=== PATIENT | male | born 1990 | race Caucasian/White ===

== ENCOUNTER 2019-04-03 12:19 | Emergency (ER) | payer SELFPAY ==
--- NOTE | 2019-04-03 12:41 | EDM.PDOC ---
ED HPI GENERAL MEDICAL PROBLEM - General Chief Complaint: Lower Extremity Injury/Pain Stated Complaint: BI;FEET ISSUES Time Seen by Provider: 04/03/19 12:41 Source of Information: Reports: Patient History Limitations: Reports: No Limitations - History of Present Illness INITIAL COMMENTS - FREE TEXT/NARRATIVE: HISTORY AND PHYSICAL: History of present illness: Patient is a 28-year-old male presents to the ED with complaint of foot pain. He states he has been having pain for the past month that has progressively gotten worse. He states it is worse by the end of the day after being on his feet all day. Pain is in his right heel and he can barely put weight on it. He states he has pain and swelling on the inside of the left foot. He denies injury or trauma, numbness, tingling. Review of systems: As per history of present illness and below otherwise all systems reviewed and negative. Past medical history: As per history of present illness and as reviewed below otherwise noncontributory. Surgical history: As per history of present illness and as reviewed below otherwise noncontributory. Social history: No reported history of drug or alcohol abuse. Family history: As per history of present illness and as reviewed below otherwise noncontributory. Physical exam: General: Patient sitting comfortably in no acute distress and nontoxic appearing HEENT: Atraumatic, normocephalic, pupils reactive, negative for conjunctival pallor or scleral icterus, mucous membranes moist, throat clear, neck supple, nontender, trachea midline. No meningeal signs. Lungs: Clear to auscultation, breath sounds equal bilaterally, chest nontender. Heart: S1S2, regular, negative for clicks, rubs, or overt murmur. Abdomen: Soft, nondistended, nontender. Negative for masses or hepatosplenomegaly. Negative for costovertebral tenderness. No rigidity, rebound , guarding. Pelvis: Stable nontender. Genitourinary: Deferred. Rectal: Deferred. Extremities: Atraumatic, negative for cords or calf pain. Neurovascular unremarkable. Neuro: Awake, alert, oriented. Cranial nerves II through XII unremarkable. Cerebellum unremarkable. Motor and sensory unremarkable throughout. Exam nonfocal. Notes: Diagnostics: foot x-ray left, foot x-ray right. Therapeutics: [] Prescriptions: Diclofenac Impression: Foot pain, bilateral Plan: Ice, elevate, and take diclofenac as instructed Follow up with podiatry, please call the number provided to schedule an appointment Return to ED as needed as discussed Definitive disposition and diagnosis as appropriate pending reevaluation and review of above. Bilateral Feet Pain Score (Numeric/FACES): 3 - Related Data Allergies Allergy/AdvReac Type Severity Reaction Status Date / Time No Known Allergies Allergy Verified 04/03/19 12:25 Home Meds: Home Meds . [No Known Home Meds] 04/03/19 [History] Past Medical History - Infectious Disease History Infectious Disease History: Reports: Chicken Pox - Past Surgical History HEENT Surgical History: Reports: Adenoidectomy, Tonsillectomy Social & Family History - Family History Family Medical History: Noncontributory - Tobacco Use Smoking Status *Q: Former Smoker Used Tobacco, but Quit: Yes Month/Year Tobacco Last Used: 2017 - Caffeine Use Caffeine Use: Reports: Soda, Tea - Recreational Drug Use Recreational Drug Use: Yes Drug Use in Last 12 Months: Yes Recreational Drug Type: Reports: Marijuana/Hashish Other Recreational Drug Type: States did it a few months ago. States not a regular thing. Review of Systems - Review of Systems Review Of Systems: ROS reveals no pertinent complaints other than HPI. ED EXAM, GENERAL - Physical Exam Exam: See Below (see dictation) Course - Vital Signs Last Recorded V/S: Last Vital Signs Temp 97.0 F 04/03/19 12:26 Pulse 63 04/03/19 12:26 Resp 17 04/03/19 12:26 BP 130/71 04/03/19 12:26 Pulse Ox 96 04/03/19 12:26 Departure - Departure Time of Disposition: 13:46 Disposition: Home, Self-Care 01 Condition: Good Clinical Impression: Bilateral foot pain - Discharge Information Referrals: PCP,None [Primary Care Provider] - Forms: ED Department Discharge Additional Instructions: The following information is given to patients seen in the emergency department who are being discharged to home. This information is to outline your options for follow-up care. We provide all patients seen in our emergency department with a follow-up referral. The need for follow-up, as well as the timing and circumstances, are variable depending upon the specifics of your emergency department visit. If you don't have a primary care physician on staff, we will provide you with a referral. We always advise you to contact your personal physician following an emergency department visit to inform them of the circumstance of the visit and for follow-up with them and/or the need for any referrals to a consulting specialist. The emergency department will also refer you to a specialist when appropriate. This referral assures that you have the opportunity for follow-up care with a specialist. All of these measure are taken in an effort to provide you with optimal care, which includes your follow-up. Under all circumstances we always encourage you to contact your private physician who remains a resource for coordinating your care. When calling for follow-up care, please make the office aware that this follow-up is from your recent emergency room visit. If for any reason you are refused follow-up, please contact the [facility] Emergency Department at and asked to speak to the emergency department charge nurse. [facility] [address] [place] [address] [facility] [address] [place] [id number] [facility] [address] [place] [id number] Ice, elevate, and take diclofenac as instructed Follow up with podiatry, please call the number provided to schedule an appointment Return to ED as needed as discussed
--- NOTE | 2019-04-03 13:37 | CR ---
INDICATION: Pain. No known injury. Technique : Two views right foot. Two views left foot FINDINGS: Minimal degenerative change right 1st MTP joint. Apparent accessory right navicular bone. No fracture or dislocation in either foot. 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 Small ossific density along the medial malleolus appears chronic and may be related to prior trauma or degenerative change. Soft tissue swelling left forefoot prominently dorsally. Minimal calcaneal spurring. Remainder negative. Dictated by Poncho Armas MD @ Apr 03 2019 1:35PM Signed by Dr. Poncho Armas @ Apr 03 2019 1:35PM
--- NOTE | 2019-04-03 13:37 | CR ---
INDICATION: Pain. No known injury. Technique : Two views right foot. Two views left foot FINDINGS: Minimal degenerative change right 1st MTP joint. Apparent accessory right navicular bone. No fracture or dislocation in either foot. 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 Small ossific density along the medial malleolus appears chronic and may be related to prior trauma or degenerative change. Soft tissue swelling left forefoot prominently dorsally. Minimal calcaneal spurring. Remainder negative. Dictated by Poncho Armas MD @ Apr 03 2019 1:32PM Signed by Dr. Poncho Armas @ Apr 03 2019 1:35PM
== END 2019-04-03 14:13 | disposition home or self-care (01) ==
LOC: MW.ED 12:19
DX: M79.671 Pain in right foot (principal); M79.672 Pain in left foot; Z87.891 Personal history of nicotine dependence
CPT/HCPCS: 73620-26-LT; 73620-26-RT; 73620-LT; 73620-RT; 99283-25